=== PATIENT | male | born 1960 | race Caucasian/White ===

== ENCOUNTER 2021-01-05 02:54 | Inpatient (IN) | payer OTHER ==
[~2021-01-05] VITALS: Ht 165.1 cm; Wt 94.8 kg
[2021-01-05] VITALS (21 sets, daily range): BP systolic 103–162; BP diastolic 44–98
[~2021-01-05 02:54] MED LIST: ARIP10TA9 PO; ATOR40TA PO; GABA-534 PO; METO25TA20 PO; MIRT-119 PO; NEBI10TA2 PO; OMEP40CA21 PO; OXYC-133 PO
--- NOTE | 2021-01-05 03:00 | NUR ---
PT BIBS FOR C/O CP. WAS SEEN AT [facility] ER TODAY W/ DX OF MD. LEFT AMA WHILE WAITING TO BE TRANSFERED OUT. PT ALERT AND ORIENTED X3. AMBULATORY WITH NON LABORED BREATHING.
--- NOTE | 2021-01-05 03:11 | NUR ---
xray at bedside
[2021-01-05 03:18] LABS: CALCIUM, SERUM 8.7 mg/dL (8.5-10.1); CREATININE 0.8 mg/dL (0.6-1.3); POTASSIUM 3.5 mmol/L (3.5-5.1)
[2021-01-05 03:23] LABS: BASOPHILS % (AUTO) 0.2 % (0.0-2.0); EOSINOPHILS % (AUTO) 1.1 % (0.0-6.0); HEMATOCRIT 39 % (39-51); HEMOGLOBIN 12.8 g/dL (13.5-17.5); LYMPHOCYTES # (AUTO) 3.4 K/uL (0.8-4.8); LYMPHOCYTES % (AUTO) 33.3 % (20.0-44.0); MEAN CORPUSCULAR HGB CONC 33 g/dl (31.0-36.0); MEAN CORPUSCULAR VOLUME 90 fL (80-96); MONOCYTES # (AUTO) 0.5 K/uL (0.1-1.30); MONOCYTES % (AUTO) 5.1 % (2.0-12.0); NEUTROPHILS # (AUTO) 6.2 K/uL (1.8-8.9); NEUTROPHILS % (AUTO) 60.3 % (43.0-81.0); PLATELET COUNT (AUTO) 250 K/uL (150-450); RED BLOOD CELL COUNT(AUTO) 4.29 MIL/uL (4.5-6.0); WHITE BLOOD COUNT (AUTO) 10.2 K/uL (4.3-11.0)
--- NOTE | 2021-01-05 03:27 | NUR ---
TROPONIN 0.98
[2021-01-05] MEDS ORDERED: NITROGLYCERIN PACKET 1 GM PACKET ONE (03:40)
[2021-01-05] MEDS ORDERED: NITROGLYCERIN PACKET 1 GM PACKET TOP ONE (04:00)
--- NOTE | 2021-01-05 04:00 | NUR ---
VERBAL AUTH REC'D FROM SANDRO MOORE THE PT
--- NOTE | 2021-01-05 04:02 | NUR ---
ICU 263
--- NOTE | 2021-01-05 04:14 | NUR ---
REPORT GIVEN TO PIPE MANUFACTURE SUPERVISOR
--- NOTE | 2021-01-05 04:26 | NUR ---
pt transferred to room 263 on dining room coordinator per acls protocol without incident
[2021-01-05] MEDS ORDERED: MAG HYDROX/AL HYDROX/SIMETH 30 ML UDC PO PRN (04:30)
[2021-01-05] MEDS ORDERED: ACETAMINOPHEN 325 MG TABLET PO PRN (04:30)
[2021-01-05] MEDS ORDERED: Z GUARD REMEDY 2 OZ OINT TP PRN (04:30)
[2021-01-05] MEDS ORDERED: MORPHINE SULFATE INJ 2 MG/ML DISP.SYRIN IV PRN (04:30)
[2021-01-05] MEDS ORDERED: ONDANSETRON HCL/PF 4 MG/2 ML VIAL IVP PRN (04:30)
[2021-01-05] MEDS ORDERED: MAGNESIUM HYDROXIDE 30 ML UDC PO PRN (04:30)
[2021-01-05] MEDS ORDERED: ZOLPIDEM TARTRATE 5 MG TABLET PO PRN (04:30)
--- NOTE | 2021-01-05 07:00 | NUR ---
RN NOTES 0420 AM - ADMITTED PATIENT FROM ER INITIALLY FROM [facility] WITH NSTEMI DUE TO CHEST PAIN AND ELEVATED TROPONIN. PATIENT IS ALERT ORIENTED X 4. VERBALLY RESPONSIVE. DENIES CHEST PAIN AT THIS TIME. SR ON MONITOR. VSS. SATURATION 96%. PATIENT AMBULATE AND TRANSFER WELL FROM STRETCHER TO BED. AWAITING FOR CARDIAC CATH TODAY. ENDORSED CONTINUITY OF CARE TO AM NURSE.
--- NOTE | 2021-01-05 07:27 | NUR ---
CHECK AIRMAN NOTE Patient is A/O X4, awake using his phone on bed, no respiratory distress, no SOB. Complains of pain on chest when he moves around 4/10, states it has improved compared to last night. Sinus rhythm, able to void 280cc on urinal. Safety precautions implemented, bed locked in lowest position, call light within reach.
[2021-01-05] MEDS ORDERED: ENOXAPARIN SODIUM 100 MG/ML DISP.SYRIN SQ SCH (08:00)
[2021-01-05] MEDS: ARIPIPRAZOLE 5 MG TABLET PO SCH (08:05)
[2021-01-05] MEDS: METOPROLOL TARTRATE 25 MG TABLET PO SCH ×2 (08:06→21:39)
[2021-01-05] MEDS: PANTOPRAZOLE 40 MG TABLET.DR PO SCH (08:06)
[2021-01-05] MEDS: NITROGLYCERIN 30 GM TUBE TP SCH ×2 (08:34→21:39)
[2021-01-05 08:56] LABS: THYROID STIMULATING HORMONE 1.815 uIU/mL (0.358-3.74)
--- NOTE | 2021-01-05 10:05 | NUR ---
RN NOTE Troponin 1.541, Dr. Salamanca made aware.
[2021-01-05] MEDS ORDERED: IODIXANOL 150 ML IV ONE (11:59)
[2021-01-05] MEDS ORDERED: LIDOCAINE HCL/PF 1% 30 ML SDV ONE (12:00)
--- NOTE | 2021-01-05 12:15 | NUR ---
RN NOTE Out of LT HRT ART VENTRICLE ANGIO.
[2021-01-05] MEDS ORDERED: NTG 25 MG/D5W 250 ML BTL 25 MG/250 ML BTL IV ONE (12:25)
[2021-01-05] MEDS ORDERED: ATROPINE SULFATE 1 MG/10 ML DISP.SYRIN ONE (12:46)
[2021-01-05] MEDS ORDERED: HEPARIN SODIUM, PORCINE 5000 UNITS/1 ML VIAL ONE (13:02)
[2021-01-05] MEDS ORDERED: HEPARIN SODIUM, PORCINE 1,000 UNIT/ML VIAL ONE (13:02)
--- NOTE | 2021-01-05 13:40 | NUR ---
RN NOTE Back from [facility], per [facility] team patient has multivessel disease and Stent was not possible. Alert and oriented x 4. awake, no SOB, no respiratory distress. Back with transradial artery access on right side, site with no active bleeding, denies pain, informed to keep arm straight x 2 hours.
[2021-01-05] MEDS ORDERED: IV NS 0.9% 100 ML IV SCH (14:00)
[2021-01-05] MEDS ORDERED: IV NS 0.9% 1,000 ML IV ONE (14:40)
--- NOTE | 2021-01-05 15:23 | NUR ---
RN NOTE Transradial artery access removed per protocol 2 hours post procedure 3-5cc x 15 mins, after removal no active bleeding noted, no change in V/S, good capillary refill, pulse present on distal area.
--- NOTE | 2021-01-05 18:49 | NUR ---
LICENSED FUNERAL DIRECTOR CLOSING NOTE Patient is Alert and oriented x4, on 2 liters via NC satting 98%, denies chest pain at this moment since Nitro paste was applied. On IVF NS 100cc x 6 hours end 2049 with no s/sx of infiltration. Continent of B/B, uses the urinal with 500cc output. S/P Transradial access removal with no s/sx of bleeding, V/S WNL. Safety precautions implemented, bed locked in lowest position, call light within reach.
--- NOTE | 2021-01-05 19:30 | NUR ---
RN NOTES RECEIVED PATIENT RESTING ON BED. AWAKE ALERT ORIENTED X 4. ABLE TO VERBALIZED NEEDS AND CONCERNED. SR ON MONITOR. DENIES PAIN NOR CHEST PAIN. IV SITE ON RIGHT AC G 18 AND LAC G 18 RUNNING WITH NS @ 100 ML/HR TOLERATED WELL WILL STOP AT 2050 PM PER MD ORDER. S/P CARDIAC CATH ACCESS ON RIGHT RADIAL. KEPT PT CLEAN AND DRY. CALL LIGHT KEPT WITHIN EASY REACH. WILL CONTINUE TO MONITOR.
[2021-01-05] MEDS: MIRTAZAPINE 15 MG TABLET PO SCH (21:39)
[2021-01-05] MEDS: ATORVASTATIN 40 MG TABLET PO SCH (21:39)
[2021-01-05] MEDS: GABAPENTIN 300 MG CAPSULE PO SCH (21:39)
[2021-01-06] VITALS (20 sets, daily range): BP systolic 87–158; BP diastolic 41–91
[2021-01-06 04:39] LABS: BASOPHILS % (AUTO) 0.2 % (0.0-2.0); EOSINOPHILS % (AUTO) 1.3 % (0.0-6.0); HEMATOCRIT 35 % (39-51); HEMOGLOBIN 11.7 g/dL (13.5-17.5); LYMPHOCYTES # (AUTO) 2.4 K/uL (0.8-4.8); MEAN CORPUSCULAR HGB CONC 34 g/dl (31.0-36.0); MEAN CORPUSCULAR VOLUME 89 fL (80-96); MONOCYTES # (AUTO) 0.5 K/uL (0.1-1.30); NEUTROPHILS % (AUTO) 62.5 % (43.0-81.0); PLATELET COUNT (AUTO) 211 K/uL (150-450); RED BLOOD CELL COUNT(AUTO) 3.89 MIL/uL (4.5-6.0)
[2021-01-06 04:49] LABS: CALCIUM, SERUM 8.5 mg/dL (8.5-10.1); CREATININE 0.8 mg/dL (0.6-1.3); MAGNESIUM 2.2 mg/dL (1.8-2.4); PHOSPHORUS 3.8 mg/dL (2.5-4.9); POTASSIUM 3.9 mmol/L (3.5-5.1)
--- NOTE | 2021-01-06 06:37 | NUR ---
RN NOTES PATIENT ASLEEP WELL ON BED. NO SOB OR APPARENT DISTRESS, KEPT O2 2LPM VIA NC SATURATION >90% SB OR NSR ON MONITOR. DENIES CHEST PAIN. AFEBRILE VSS. NO CHANGE OF MENTAL STATUS. NO BLEEDING FROM S/P CARDIAC CATH. BED BATH DONE. KEPT PT CLEAN AND COMFORTABLE IN BED. CALL LIGHT KEPT WITHIN EASY REACH. WILL CONTINUE POC
--- NOTE | 2021-01-06 07:39 | NUR ---
NEEDLE PUNCH OPERATOR OPENING NOTE Patient is awake, A/O X 4, on 2 liters via NC, no respiratory distress, no SOB. Denies chest pain, or distress. Safety precautions implemented, bed locked in lowest position, call light within reach.
[2021-01-06] MEDS: METOPROLOL TARTRATE 25 MG TABLET PO SCH ×2 (08:48→20:37)
[2021-01-06] MEDS: ARIPIPRAZOLE 5 MG TABLET PO SCH (08:48)
[2021-01-06] MEDS: PANTOPRAZOLE 40 MG TABLET.DR PO SCH (08:49)
[2021-01-06] MEDS: NITROGLYCERIN 30 GM TUBE TP SCH ×2 (08:50→20:43)
[2021-01-06] MEDS: HYDROCODONE/APAP 5/325MG TABLET PO PRN (10:02)
--- NOTE | 2021-01-06 18:49 | NUR ---
BUSINESS PROPOSAL REP CLOSING NOTE Patient is A/O X 4, on 2 liters via NC, denies SOB and chest pain, RAC/LAC IV site with no s/sx of infiltration. Telereading sinus rhythm. Continent of B/B 700c urine voided, 2 BM. Ate 100% of all meals. Complains of pain on back area relieved after administration of [place]. Safety precautions implemented, bed locked in lowest position, call light within reach. 1845-Endorsed to NINA Nicole on ISAAC for continuation of care.
--- NOTE | 2021-01-06 19:30 | NUR ---
RN NOTE RECEIVED PATIENT IN BED RESTING ALERT ORIENTED X4 VERBALLY RESPONSIVE ON 2L OXYGEN VIA NASAL CANNULA, O2:97% IV SITE IS ON LEFT AC AND RIGHT AC INTACT PATENT CONTINET TO BOWEL/BLADDER SAFETY MEASURE IMPLEMENT BED IN LOW POSITION AND LOCKED CALL LIGHT WITHIN REACH CONTINUE TO MONITOR.
[2021-01-06] MEDS: MIRTAZAPINE 15 MG TABLET PO SCH (21:41)
[2021-01-06] MEDS: GABAPENTIN 300 MG CAPSULE PO SCH (21:41)
[2021-01-06] MEDS: ATORVASTATIN 40 MG TABLET PO SCH (21:41)
--- NOTE | 2021-01-06 23:00 | NUR ---
RN NOTE PATIENT STATED HAS DIFFICULTY BREATHING INCREASE OXYGEN FROM 2L TO 5L VIA NASAL CANNULA O2:96% NOTIFIED DORMITORY KEEPER SSN/SSBN ASSISTANT NAVIGATOR MISTI AND RECEIVED ORDER FOR EVAL FOR CPAP AND OUTPATIENT SLEEP STUDY WILL ENDORSE MORNING SHIFT CONTINUE TO MONITOR.
[2021-01-07] VITALS: BP 131/82
[2021-01-07] MEDS: HYDROCODONE/APAP 5/325MG TABLET PO PRN ×2 (01:26→22:16)
[2021-01-07 04:00] VITALS: BP 138/79
--- NOTE | 2021-01-07 06:53 | NUR ---
RN NOTE PATIENT REMAINS ON ALERT ORIENTED X4 VERBALLY RESPONSIVE ON 5L OXYGEN VIA NASAL CANNULA IV SITES ARE LEFT AC AND RIGHT AC ALL DUE MEDS GIVEN MD ORDERED KEPT CLEAN AND DRY ALL THE TIME,KEPT COMFORTABLE,KEPT CALL LIGHT WITHIN REACH, ALL NEEDS MET ENDORSE NEXT COMING SHIFT FOR CONTINUATION OF CARE.
--- NOTE | 2021-01-07 07:30 | NUR ---
INDUSTRIAL PLANT CUSTODIAN AM NOTE PATIENT IN BED,ALERT ORIENTED X4, VERBALLY RESPONSIVE ON 5L OXYGEN VIA NASAL CANNULA, NO SOB, RESPIRATION UNLABORED. SR WITH HR 70s ON MONITOR, DENIES ANY CHEST PAIN/DISCOMFORT. IV SITE IS ON LEFT AC 18G AND RIGHT AC 18G, BOTH FLUSHES WELL, BOTH SITE CLEAR. CARDIAC DIET, AMBULATORY WITH ASSIST, BRP. INTACT SKIN. INDEPENDENT OF BED MOBILITY. SAFETY MEASURE IN PLACE. BED IN LOW POSITION AND LOCKED POC DISCUSSED VERBALIZED UNDERSTANDING. CALL LIGHT WITHIN REACH CONTINUE TO MONITOR.
[2021-01-07 08:00] VITALS: BP 115/79
[2021-01-07] MEDS: PANTOPRAZOLE 40 MG TABLET.DR PO SCH (08:19)
[2021-01-07] MEDS: ARIPIPRAZOLE 5 MG TABLET PO SCH (08:19)
[2021-01-07] MEDS: METOPROLOL TARTRATE 25 MG TABLET PO SCH ×2 (08:20→20:46)
[2021-01-07] MEDS: NITROGLYCERIN 30 GM TUBE TP SCH ×2 (08:33→20:46)
--- NOTE | 2021-01-07 09:30 | NUR ---
RN NOTES DUE MEDS GIVEN
[2021-01-07] MEDS: ASPIRIN 81 MG TAB.CHEW PO SCH (11:02)
[2021-01-07 12:00] VITALS: BP 114/67
[2021-01-07 16:00] VITALS: BP 122/70
[2021-01-07] MEDS ORDERED: ASPI-1169 PO (17:10)
--- NOTE | 2021-01-07 19:12 | NUR ---
CONCRETE BLOCK MASON CLOSING NOTE PATIENT RESTING, IN BED,ALERT ORIENTED X4, VERBALLY RESPONSIVE ON 5L OXYGEN VIA NASAL CANNULA, ON AND OFF, NO SOB, RESPIRATION UNLABORED. SR WITH HR 70s ON MONITOR, DENIES ANY CHEST PAIN/DISCOMFORT. IV SITE IS ON LEFT AC 18G AND RIGHT AC 18G, BOTH FLUSHES WELL, BOTH SITE CLEAR. CARDIAC DIET, AMBULATORY WITH ASSIST, BRP. INTACT SKIN. INDEPENDENT OF BED MOBILITY. SAFETY MEASURE IN PLACE. BED IN LOW POSITION AND LOCKED POC DISCUSSED VERBALIZED UNDERSTANDING. ALL NEEDS ATTENDED. NO OTHER SIGNFICANT CHANGE IN CONDITION. CALL LIGHT WITHIN ENDORSE TO NEXT SHIFT FOR [place]. PATIENT AWAITING BED AVAILABILITY AT [facility] FOR POSSIBLE BYPASS. DISCHARGE PAPERS DONE. [facility] TO CALL FOR THE BED. THEN NEEDS TO CALL MA GLYNN TO ACTIVATE WILL CALL [facility] TRANSPORT, TRIP # [id number]. PAPER AND INSTRUCTION GIVEN TO FARHAT WOOD.
--- NOTE | 2021-01-07 19:30 | NUR ---
RN NOTE RECEIVED PATIENT IN BED, AO X 4, IN NO S/SX OF ACUTE DISTRESS AT THIS TIME, RESPIRATIONS EVEN AND UNLABORED, SATURATION AT 98% ON 5L VIA NC, SR ON THE MONITOR, HR IS 68. NOTED IV SITE RAC 18G, AND LAC 18G, ALL HUBS PATENT AND FLUSHING WELL, NO S/S OF INFECTION OR INFILTRATION.SAFETY MEASURES IMPLEMENTED. PATIENT BED ALARM IS ON. HEAD OF BED ELEVATED. BED IS LOCKED, IN LOWEST POSITION AND SIDE RAILS UP. CALL LIGHT WITHIN REACH OF THE PATIENT. WILL CONTINUE TO MONITOR AND REASSESS FOR ANY CHANGES.
[2021-01-07 20:00] VITALS: BP 134/73
[2021-01-07] MEDS: ATORVASTATIN 40 MG TABLET PO SCH (21:23)
[2021-01-07] MEDS: GABAPENTIN 300 MG CAPSULE PO SCH (21:23)
[2021-01-07] MEDS: MIRTAZAPINE 15 MG TABLET PO SCH (21:23)
[2021-01-08] VITALS: BP 152/75
[2021-01-08 04:00] VITALS: BP 121/71
--- NOTE | 2021-01-08 07:41 | NUR ---
RN OPENING NOTES; RECIEVED PT IN BED, LAUGHING, WATCHING TV. PT A/OX4, PT AMBULATORY. NO C/O SOB, OR PAIN. NO DISTRESS NOTED AT THIS TIME. PT TO BE TRANSFERED TO [facility]. ALL PAPERWORK DONE. WAITING FOR BED. SAFETY MEASURES RENDERED, BED IN LOWEST POS. LOCKED WITH CALL WITHIN REACH. WILL CONTINUE TO MONITOR.
[2021-01-08 08:00] VITALS: BP 115/79
[2021-01-08] MEDS: PANTOPRAZOLE 40 MG TABLET.DR PO SCH (08:03)
[2021-01-08] MEDS: ASPIRIN 81 MG TAB.CHEW PO SCH (08:03)
[2021-01-08] MEDS: ARIPIPRAZOLE 5 MG TABLET PO SCH (08:03)
[2021-01-08] MEDS: NITROGLYCERIN 30 GM TUBE TP SCH ×2 (08:04→21:58)
[2021-01-08] MEDS: METOPROLOL TARTRATE 25 MG TABLET PO SCH ×2 (08:04→21:51)
[2021-01-08 12:00] VITALS: BP 105/60
[2021-01-08 16:00] VITALS: BP 107/65
--- NOTE | 2021-01-08 16:31 | NUR ---
"SS Consult: SS Consult requested for Homelessness. The pt. is a 60-year old male who is in ISAAC w/ c/o chest pain per pt. The pt. appears well-groomed, is A&O X4 and good eye contact. The pt. mood is euthymic. Pt.s speech is WNL. Pt. denies SI/HI and denies hallucinations. JANES explored pt.s living situation. Pt. states she has been technically homeless for some time and lives in his van. Per pt., his vehicle is parked nearby and his. friends are looking after it. JANES explored pt.s mental health Hx. Pt. states he has been diagnosed with Schizophrenia in the past and is taking Abilify, and Zyprexa. SW explored pt.s drug & ETOH use. Patient denies any drug or alcohol use. Pt. states he is ambulatory. JANES explored pt.s support system. Pt. states his support system includes: his sister, Ghazala Mckeon [phone] and adopted son, Tahir Nolan [phone]. Pt. states he receives disability insurance. D/C PLAN: Per CM notes, pt. require bypass surgery and may possibly go to [facility] for procedure. Pt. is aware and agreeable to this plan. Pt. signed homeless waiver and it was placed in the pt.s chart. JANES provided the following homeless resources and pt. accepted them. Year-round shelters: [facility] [address] [place], [place] [phone] ; [facility] [address] [place] [address]; [facility] [address] [facility] [address] Winter Shelters: Filemon Mejia [place] Provider: [facility] Address: [address] [facility] [place], [address] # of Beds: 47 Population Served: [facility] 6 | [facility] Kierra Noble [place] Provider: [facility] Address: [address], [address] # of Beds: 66 Population Served: [facility] [employer] [place] Provider: First to Serve Address: [address] [facility], [address] # of Beds: 56 Population Served: [facility] David Castano Provider: /[facility] Address: [address] [facility], [address] # of Beds: 49 Population Served: [facility] SPA 8 | [facility] Provider: First to Serve Address: [address] [facility]. [place], [address] # of Beds: 37 Population Served: [facility] Hygiene: [facility]: [address] [place] ; [facility] [address] [facility] ; [facility] [address] [place] . Food Resources: [place] [facility] at [facility]- [address] [facility]; Meet Each Need with Dignity ([facility]) [address] [facility]; [facility] Food Pantry [address] [facility]; [facility] [address] [facility]. Mental Health resources provided: [facility] [address] [place], [place] [phone] ; [facility] [place] [address] [facility] [address], [place], [place] [phone] ; Dwight Shanna [facility] [address] [place] [address] ; [facility] [address] [place], [place] [address] Healthcare Clinics: [facility] [address] [facility], [address] [place]. [place] ; [facility] [address] [facility] [address] [place] [address]; [facility] [address] [place] [address] [phone]) [phone] Counseling--[facility] [address], [address] [place], [place] [address] (Specializes in in-depth psychotherapy for emotional distress: anxiety, depression, interpersonal conflicts, life transitions, childhood abuse) [facility] [address] [place], [place] [phone] (Assist with solving problem marital difficulties, separation & divorce, aging parents, & grief, chronic & terminal illness) [facility] [address] [place] [address] (Deal with loss & grief, anxiety, marital difficulties) Homebound/Mental Health Services [address] [facility] [address] [place] [address] (Provide in-home mental services to people who are incapable of leaving their homes) [facility] for [facility]eds of the Elderly Senior Service/Resource Center [address] [place] [address] [facility] [address] [place] [address] PSYCHIATRIC OUTPATIENT SERVICES [facility] Partial Hospitalization and Intensive Outpatient Program (Managed Care and [place] Only)[address] [facility] [place] [phone] [facility] Partial Hospitalization and Outpatient [id number] [facility] [address] [place], [place] [phone] [facility] [id number] [place], [place] [phone] [facility] Partial Hospitalization and Outpatient [id number] [place], [phone] Substance Abuse resources provided included: [facility] Substance Abuse Self-Helpline (SAS) ; CRI [facility]HELP [address] [facility]. [place] [address] ; [facility] [address] [facility] [address] ; [facility] Rehabilitation Program [address] [place] [address] ; [facility] [address] [facility] [address] ; [facility] Treatment [facility] [address] [facility] [address] ; [facility] [address] [facility] [phone] ; [facility] Substance Abuse Helpline(SAS)[facility] ; [facility] ; [facility]; [facility] [place]; [facility] [place]; [facility] Nghia Xavier; [facility] [place]; [facility] [place]; [facility] [place]; [facility], [facility]. [place]; Alcoholics Anonymous -SFV; Uu-Mjve-Okeqpbt ; Marijuana Anonymous -SFV; Narcotics Anonymous www.na.org;"
--- NOTE | 2021-01-08 18:09 | NUR ---
RN CLOSING NOTES; PT IN ROOM WATCHING TV. PT A/OX3, AMBULATORY. NO SOB NOTED, NO DISTRESS NOTED. PT HAS NO C/O PAIN AT THIS TIME. ALL MEDICATIONS GIVEN AND TOLERATED WELL. NO SIGNIFICANT CHANGES IN PT HEALTH DURING SHIFT. SAFETY MEASURES RENDERED, PT KEPT CLEAN, DRY, AND COMFORTABLE. BED LOCKED, IN LOWEST POS. SIDE RAILS UP WITH CALL LIGHT WITHIN REACH. PT WAITING FOR JUNIOR BRAND MANAGER AT 8PM TO BE TRANSFERRED TO [facility]. REPORT GIVEN TO WILL. ENDORSED TO HUMAN RESOURCES SUPERVISOR RN IN STABLE CONDITION. ALL PAPER WORK READY TO GO AND LOCATED IN PT CHART.
--- NOTE | 2021-01-08 19:37 | NUR ---
RN OPENING NOTES: RECEIVED PATIENT AWAKE IN BED, BED IN LOW POSITION, CALL LIGHTS WITHIN REACH, NO COMPLAIN OF PAIN AND DISCOMFORT AT THIS TIME, PATIENT IS AMBULATORY A/OX4 ABLE TO MAKE NEEDS KNOWN, ON NC AT 5LPM, NO SOB NOTES, WITH KRISTOFER WHITESIDE#18, PATIENTS AWAITING TO BE DISCHARGE TO [facility], ALL NEEDS MET, CONTINUE TO MONITOR.
[2021-01-08] MEDS: GABAPENTIN 300 MG CAPSULE PO SCH (21:33)
[2021-01-08] MEDS: ATORVASTATIN 40 MG TABLET PO SCH (21:34)
[2021-01-08] MEDS: MIRTAZAPINE 15 MG TABLET PO SCH (21:34)
[2021-01-08 21:58] VITALS: BP 147/86
--- NOTE | 2021-01-08 22:00 | NUR ---
RN CLOSING NOTES: PATIENT WAS MANAGER STORY VIA GURNEY BY [facility] AT 2150 ON STABLE CONDITION TO [facility], V/S ARE WITHIN NORMAL RANGE, ALL DUE MEDS GIVEN, PATIENT HAS NO COMPLAIN OF PAIN AND DISCOMFORT DURING DISCHARGE. PATIENT KEPT CLEAN AND DRY, ENDORSE DOCUMENT TO AMBULANCE , ABLE TO SPEAK TO ONE OF THE NURSE IN HOSPITAL FOR REENDORSEMENT, ALL NEEDS MET LEFT THE FACILITY 2150 TO [facility]
== END 2021-01-08 21:50 | disposition short-term general hospital (02) | DRG 190 ==
LOC: ER 02:57 → ICU 04:01 → TELE1 01-06 18:46
PROVIDERS: ADMIT Nurse Practitioner Acute Care; ATTEND Nurse Practitioner Acute Care
PROC: 4A023N7 Measurement of Cardiac Sampling and Pressure, Left Heart, Percutaneous Approach (ICD-10-PCS; principal; 2021-01-05)
PROC: B211YZZ Fluoroscopy of Multiple Coronary Arteries using Other Contrast (ICD-10-PCS; 2021-01-05)
DX: I21.4 Non-ST elevation (NSTEMI) myocardial infarction (principal); E66.9 Obesity, unspecified; I10 Essential (primary) hypertension; Z20.822 Contact with and (suspected) exposure to COVID-19; E78.5 Hyperlipidemia, unspecified; Z59.00 Homelessness unspecified; Z68.34 Body mass index [BMI] 34.0-34.9, adult; I25.110 Atherosclerotic heart disease of native coronary artery with unstable angina pectoris; F32.A Depression, unspecified; F20.9 Schizophrenia, unspecified; Z95.5 Presence of coronary angioplasty implant and graft; G89.29 Other chronic pain; F17.200 Nicotine dependence, unspecified, uncomplicated; I25.2 Old myocardial infarction; Z79.899 Other long term (current) drug therapy
CPT/HCPCS: 36415; 71045-TC; 80048-TC; 80061-TC; 83735-TC; 84100-TC; 84439-TC; 84443-TC; 84484-TC; 85025-TC; 85610-TC; 87081-TC; 93307-TC; C1887; C9803; G0378; G0500; J0461; J1644; J1650; J3490; J7030; Q9967

== ENCOUNTER 2021-10-27 09:16 | Inpatient (IN) | payer OTHER ==
[~2021-10-27] VITALS: Ht 165.1 cm; Wt 95.3 kg
[~2021-10-27 09:16] MED LIST changes: +ASPI-1169 PO
--- NOTE | 2021-10-27 09:30 | NUR ---
BIBS W/ C/O SOB X4 DAYS; PER PT, HE RAN OUT OF INHALER AND IS REQUESTNG BREATHING TREATMENT. PT IS A/O X4, AMBULATORY, TO ER BED 7, AWAITING MD DUNNE.
[2021-10-27] MEDS ORDERED: FUROSEMIDE 40 MG/4 ML VIAL IV ONE (10:00)
[2021-10-27] MEDS ORDERED: ALBUTEROL FS 2.5 MG/0.5 ML VIAL.NEB NEB ONE (10:00)
[2021-10-27] MEDS ORDERED: IPRATROPIUM NEB FS 0.5 MG/2.5 ML AMPUL.NEB NEB ONE (10:00)
--- NOTE | 2021-10-27 10:00 | NUR ---
COVID ANTIGEN SWAB DONE AND SENT TO THE LAB
--- NOTE | 2021-10-27 10:20 | NUR ---
PHLEB TECH AT BEDSIDE FOR BLOOD DRAW
[2021-10-27] MEDS ORDERED: FUROSEMIDE 40 MG/4 ML VIAL ONE (10:27)
[2021-10-27 10:29] LABS: BASOPHILS % (AUTO) 0.4 % (0.0-2.0); EOSINOPHILS % (AUTO) 1.4 % (0.0-6.0); HEMATOCRIT 40 % (39-51); HEMOGLOBIN 13.2 g/dL (13.5-17.5); LYMPHOCYTES # (AUTO) 2.1 K/uL (0.8-4.8); LYMPHOCYTES % (AUTO) 23.8 % (20.0-44.0); MEAN CORPUSCULAR HGB CONC 33 g/dl (31.0-36.0); MEAN CORPUSCULAR VOLUME 86 fL (80-96); MONOCYTES # (AUTO) 0.5 K/uL (0.1-1.30); MONOCYTES % (AUTO) 5.5 % (2.0-12.0); NEUTROPHILS % (AUTO) 68.9 % (43.0-81.0); PLATELET COUNT (AUTO) 228 K/uL (150-450); RED BLOOD CELL COUNT(AUTO) 4.63 MIL/uL (4.5-6.0); WHITE BLOOD COUNT (AUTO) 8.7 K/uL (4.3-11.0)
--- NOTE | 2021-10-27 10:30 | NUR ---
RT AT BEDSIDE FOR BREATHING TX
[2021-10-27] MEDS ORDERED: IPRATROPIUM NEB FS 0.5 MG/2.5 ML AMPUL.NEB ONE (10:32)
[2021-10-27] MEDS ORDERED: ALBUTEROL FS 2.5 MG/3 ML VIAL.NEB ONE (10:32)
--- NOTE | 2021-10-27 10:53 | NUR ---
IV LINE ESTABLISHED ON L HAND #20; LINE IS SALINE-LOCKED
[2021-10-27] MEDS ORDERED: HYDROCODONE/APAP 5/325MG TABLET ONE (10:57)
--- NOTE | 2021-10-27 10:57 | NUR ---
PT REQUESTED NORCO FOR CHEST PAIN RATE 7-11/03; DR. NARAYAN MADE AWARE W/ ORDER FOR NORCO , ORDER WAS READ BACK AND VERIFIED.
[2021-10-27] MEDS ORDERED: HYDROCODONE/APAP 5/325MG TABLET PO ONE (11:00)
[2021-10-27] MEDS ORDERED: ALBU8.5H8 INH (11:23)
[2021-10-27] MEDS ORDERED: ASPI-1420 PO (11:23)
[2021-10-27] MEDS ORDERED: INSU100I14 SQ (11:23)
[2021-10-27] MEDS ORDERED: AMIO200T5 PO (11:23)
[2021-10-27] MEDS ORDERED: ATOR40TA PO (11:23)
[2021-10-27] MEDS ORDERED: METO25TA4 PO (11:23)
[2021-10-27] MEDS ORDERED: CYCL10TA9 PO (11:23)
[2021-10-27] MEDS ORDERED: FERR325T23 PO (11:23)
--- NOTE | 2021-10-27 12:08 | NUR ---
Adriel myers in [facility] - 10/27/21 at 1209 by [place]IA [place] [phone]-
--- NOTE | 2021-10-27 12:09 | NUR ---
ROOM [id number]
[2021-10-27 12:30] LABS: ALANINE AMINOTRANSFERASE 47 U/L (12-78); ALKALINE PHOSPHATASE 88 U/L (46-116); ASPARTATE AMINOTRANSFERASE 38 U/L (15-37); BILIRUBIN,DIRECT 0.2 mg/dL (0.0-0.2); BILIRUBIN,TOTAL 0.5 mg/dL (0.2-1.0); CALCIUM, SERUM 8.6 mg/dL (8.5-10.1); CARBON DIOXIDE 26 mmol/L (21-32); CHLORIDE 101 mmol/L (98-107); CREATININE 0.9 mg/dL (0.6-1.3); GLUCOSE 93 mg/dL (74-106); POTASSIUM 3.1 mmol/L (3.5-5.1); SODIUM SERUM 137 mmol/L (136-145); TOTAL PROTEIN, SERUM 8.3 g/dL (6.4-8.2); UREA NITROGEN, BLOOD 11 mg/dL (7-18)
[2021-10-27 12:40] LABS: ALBUMIN 3.7 g/dL (3.4-5.0)
--- NOTE | 2021-10-27 13:07 | NUR ---
PT REPORT GIVEN TO NINA NOVOA
[2021-10-27] MEDS ORDERED: ASPIRIN 325 MG TABLET ONE (13:18)
[2021-10-27] MEDS ORDERED: ASPIRIN 325 MG TABLET PO ONE (13:30)
--- NOTE | 2021-10-27 16:05 | NUR ---
PT TRANSFERRED TO UNIT VIA JEROME COBURN PROTOCOL. WARM HANDOFF GIVEN TO NINA NOVOA.
--- NOTE | 2021-10-27 16:10 | NUR ---
SHAKER SCREEN OPERATORPODIATRIST ORTHOPEDIC NOTE: RECEIVED PT. FROM ER VIA [facility]. REPORT RECEIVED FROM SHANNON WOOD. PT. AOX4. ABLE TO MAKE NEEDS KNOWN. ON RA, TOLERATING WELL. SAT AT 95%. NO SOB NOTED AT THIS TIME. ON TELE MONITOR WITH CURRENT READING OF NSR, CURRENT HR OF 79 BPM. BP - 159/72. RESP - 20 BPM. ORAL TEMP - 97.4 F. NO C/O OF PAIN AT THIS TIME. IV SITE IN L HAND G #20 SALINE LOCKED. INTACT AND PATENT. NO S/S OF INFILTRATION. SAFETY MEASURES IN PLACE: BED IN LOWEST AND LOCKED POSITION, SIDE RAILS UP X2, CALL LIGHT WITHIN REACH. WILL CONTINUE TO MONITOR PT. FOR ANY CHANGES.
[2021-10-27] MEDS ORDERED: ACETAMINOPHEN 325 MG TABLET PO PRN (17:00)
[2021-10-27] MEDS ORDERED: IPRATROPIUM NEB FS 0.5 MG/2.5 ML AMPUL.NEB NEB PRN (17:00)
[2021-10-27] MEDS ORDERED: POTASSIUM CHLORIDE 20 MEQ TAB.PRT.SR PO ONE (17:00)
[2021-10-27] MEDS ORDERED: GUAIFENESIN LA 600 MG TABLET.SA PO PRN (17:00)
[2021-10-27] MEDS ORDERED: ONDANSETRON HCL/PF 4 MG/2 ML VIAL IVP PRN (17:00)
[2021-10-27] MEDS ORDERED: ALBUTEROL FS 2.5 MG/3 ML VIAL.NEB NEB PRN (17:00)
[2021-10-27] MEDS ORDERED: MAG HYDROX/AL HYDROX/SIMETH 30 ML UDC PO PRN (17:00)
[2021-10-27] MEDS ORDERED: ENOXAPARIN SODIUM 40 MG/0.4 ML DISP.SYRIN SQ SCH (17:00)
[2021-10-27] MEDS: HYDROCODONE/APAP 5/325MG TABLET PO PRN (18:13)
--- NOTE | 2021-10-27 19:20 | NUR ---
COURT SECURITY OFFICER CLOSING NOTE: PT REMAINS IN BED AWAKE. A/O X4, ABLE TO MAKE NEEDS KNOWN. ON RA, TOLERATING WELL. NO SOB NOTED AT THIS TIME. NORCO GIVEN AT 1813 FOR CHEST PAIN AROUND SURGICAL INCISION FROM SURGERY IN THE PAST. PAIN IMPROVED AND NOW AT 05/06. IV SITE ON L HAND #20G SALINE LOCKED. INTACT AND PATENT. NO S/S OF INFILTRATION NOTED. SAFETY MEASURES MAINTAINED: BED IN LOWEST AND LOCKED POSITION, SIDE RAILS UP X2, CALL LIGHT WITHIN REACH. WILL ENDORSE CONTINUITY OF CARE TO EDUCATION PROFESSIONAL RN.
--- NOTE | 2021-10-27 19:30 | NUR ---
RN NOTES; RECEIVED PT IN BED AAOX4 ON RM AIR VICTOR MANUEL WELL.NO SIGN SOB/DISTRESS NOTED.NO CO,PLAINED OF PAIN/DISCOMFORT AT THIS TIME.IV ACCESS ON L HAND 20G PATENT AND INTACT.CALL LIGHT WITHIN REACH.BED LOCKED AND LOW POSITION.CONTINUE TO MONITOR.
[2021-10-27 20:00] VITALS: BP 126/67
[2021-10-28] VITALS: BP 168/72
[2021-10-28 05:00] VITALS: BP 130/83
[2021-10-28 06:09] LABS: BASOPHILS % (AUTO) 0.3 % (0.0-2.0); EOSINOPHILS % (AUTO) 2.2 % (0.0-6.0); HEMATOCRIT 39 % (39-51); LYMPHOCYTES # (AUTO) 2.1 K/uL (0.8-4.8); LYMPHOCYTES % (AUTO) 30.2 % (20.0-44.0); MEAN CORPUSCULAR HGB CONC 33 g/dl (31.0-36.0); MEAN CORPUSCULAR VOLUME 86 fL (80-96); MONOCYTES # (AUTO) 0.3 K/uL (0.1-1.30); MONOCYTES % (AUTO) 4.4 % (2.0-12.0); NEUTROPHILS # (AUTO) 4.4 K/uL (1.8-8.9); NEUTROPHILS % (AUTO) 62.9 % (43.0-81.0); PLATELET COUNT (AUTO) 231 K/uL (150-450); RED BLOOD CELL COUNT(AUTO) 4.51 MIL/uL (4.5-6.0)
[2021-10-28 06:26] LABS: CALCIUM, SERUM 8.8 mg/dL (8.5-10.1); CREATININE 0.8 mg/dL (0.6-1.3); MAGNESIUM 2.1 mg/dL (1.8-2.4); POTASSIUM 3.6 mmol/L (3.5-5.1)
--- NOTE | 2021-10-28 06:47 | NUR ---
PLANT WRAPPER CLOSING NOTE; PATIENT IN BED AAOX4.NO SIGN SOB/DISTRESS NOTED. NO COMPLAINED OF PAIN/DISCOMFORT DURING SHIFT.DUE MEDS GIVEN ORDERED.ALL NEEDS ATTENDED.IV ACCESS ON LHAND 20G PATENT AND INTACT.SAFETY MEASURED INPLACE.BED LOCKED AND LOW POSITION.WILL ENDORSE TO MORNING SHIFT.
[2021-10-28] MEDS ORDERED: PANTOPRAZOLE 40 MG TABLET.DR PO SCH (07:30)
--- NOTE | 2021-10-28 07:30 | NUR ---
LINE FISHER CLOSING NOTE: RECEIVED PT AWAKE IN BED, A/O X4, ABLE TO MAKE NEEDS KNOWN. ON RA, TOLERATING WELL. NO SOB OR ACUTE DISTRESS NOTED AT THIS TIME. IV ACCESS ON L HAND #20G SALINE LOCKED, INTACT AND PATENT. NO S/S OF INFILTRATION NOTED. SAFETY MEASURES MAINTAINED: BED IN LOWEST AND LOCKED POSITION, SIDE RAILS UP X2, CALL LIGHT WITHIN REACH, WILL CONT TO MONITOR. . Addendum: 10/28/21 at 1444 by LISSY PETERS RN CORRECTION: OPENING NOTES:
[2021-10-28 08:00] VITALS: BP 138/79
[2021-10-28] MEDS: HYDROCODONE/APAP 5/325MG TABLET PO PRN ×2 (08:58→14:14)
[2021-10-28] MEDS ORDERED: ASPIRIN EC 81 MG TABLET.DR PO SCH (09:00)
[2021-10-28] MEDS ORDERED: METOPROLOL SUCCINATE 25 MG TAB.SR.24H PO SCH (09:00)
[2021-10-28] MEDS ORDERED: AMIODARONE HCL 200 MG TABLET PO SCH (09:00)
[2021-10-28] MEDS ORDERED: ATORVASTATIN 40 MG TABLET PO SCH (09:00)
[2021-10-28] MEDS ORDERED: ASPI-1420 PO (11:10)
[2021-10-28] MEDS ORDERED: METO25TA4 PO (11:10)
[2021-10-28] MEDS ORDERED: ATOR40TA PO (11:10)
[2021-10-28] MEDS ORDERED: FERR325T23 PO (11:10)
[2021-10-28] MEDS ORDERED: ALBU8.5H8 INH (11:10)
[2021-10-28] MEDS ORDERED: CYCL10TA9 PO (11:10)
[2021-10-28] MEDS ORDERED: AMIO200T5 PO (11:10)
[2021-10-28] MEDS ORDERED: LORA10TA68 PO (11:10)
[2021-10-28] MEDS ORDERED: INSU100I14 SQ (11:10)
[2021-10-28 12:00] VITALS: BP 142/74
== END 2021-10-28 16:00 | disposition home or self-care (01) | DRG 194 ==
LOC: ER 09:20 → TELE 14:43
PROVIDERS: ADMIT Nurse Practitioner Family; ATTEND Nurse Practitioner Family
DX: I11.0 Hypertensive heart disease with heart failure (principal); Z95.1 Presence of aortocoronary bypass graft; E11.9 Type 2 diabetes mellitus without complications; Z20.822 Contact with and (suspected) exposure to COVID-19; Z95.5 Presence of coronary angioplasty implant and graft; Z87.828 Personal history of other (healed) physical injury and trauma; Z59.00 Homelessness unspecified; I25.10 Atherosclerotic heart disease of native coronary artery without angina pectoris; Z79.4 Long term (current) use of insulin; Z79.51 Long term (current) use of inhaled steroids; Z79.82 Long term (current) use of aspirin; Z79.899 Other long term (current) drug therapy; E78.5 Hyperlipidemia, unspecified; F32.A Depression, unspecified; J30.2 Other seasonal allergic rhinitis; E87.6 Hypokalemia; E66.9 Obesity, unspecified; G47.33 Obstructive sleep apnea (adult) (pediatric); I50.43 Acute on chronic combined systolic (congestive) and diastolic (congestive) heart failure; F17.200 Nicotine dependence, unspecified, uncomplicated; Z68.34 Body mass index [BMI] 34.0-34.9, adult
CPT/HCPCS: 36415; 71045-TC; 80048-TC; 80061-TC; 80076-TC; 83735-TC; 83880; 84484-TC; 85025-TC; 87081-TC; 93307-TC; 93970-TC; C9803; G0378; J1650; J1940

== ENCOUNTER 2022-07-03 11:58 | Emergency (ER) | payer OTHER ==
[~2022-07-03] VITALS: Ht 162.6 cm; Wt 95.3 kg
[~2022-07-03 11:58] MED LIST changes: +ALBU8.5H8 INH; +AMIO200T5 PO; -ARIP10TA9 PO; -ASPI-1169 PO; +ASPI-1420 PO; +CYCL10TA9 PO; +FERR325T23 PO; -GABA-534 PO; +INSU100I14 SQ; +LORA10TA68 PO; -METO25TA20 PO; +METO25TA4 PO; -MIRT-119 PO; -NEBI10TA2 PO; -OMEP40CA21 PO; -OXYC-133 PO
[2022-07-03] MEDS ORDERED: ASPI-1420 PO (12:25)
[2022-07-03] MEDS ORDERED: AMIO200T5 PO (12:25)
[2022-07-03] MEDS ORDERED: ALBU8.5H8 INH (12:25)
[2022-07-03] MEDS ORDERED: ATOR40TA PO (12:25)
--- NOTE | 2022-07-03 12:25 | NUR ---
Patient AOx4, able to express his concerns. Discussed plan of care, verbalized agreement. All safety precautions taken, will continue to monitor.
--- NOTE | 2022-07-03 12:32 | NUR ---
Blood work collected and sent to lab.
[2022-07-03 12:39] LABS: BASOPHILS # (AUTO) 0.1 K/uL (0.0-0.2); EOSINOPHILS % (AUTO) 1.3 % (0.0-6.0); HEMATOCRIT 40 % (39-51); HEMOGLOBIN 13.6 g/dL (13.5-17.5); LYMPHOCYTES # (AUTO) 2.7 K/uL (0.8-4.8); LYMPHOCYTES % (AUTO) 29.5 % (20.0-44.0); MEAN CORPUSCULAR HGB CONC 34 g/dl (31.0-36.0); MEAN CORPUSCULAR VOLUME 86 fL (80-96); MONOCYTES # (AUTO) 0.4 K/uL (0.1-1.30); MONOCYTES % (AUTO) 4.9 % (2.0-12.0); NEUTROPHILS # (AUTO) 5.7 K/uL (1.8-8.9); NEUTROPHILS % (AUTO) 63.3 % (43.0-81.0); PLATELET COUNT (AUTO) 252 K/uL (150-450); RED BLOOD CELL COUNT(AUTO) 4.65 MIL/uL (4.5-6.0)
[2022-07-03 12:49] LABS: CALCIUM, SERUM 8.9 mg/dL (8.5-10.1); CARBON DIOXIDE 23 mmol/L (21-32); CHLORIDE 102 mmol/L (98-107); CREATININE 0.8 mg/dL (0.6-1.3); GLUCOSE 89 mg/dL (74-106); POTASSIUM 3.6 mmol/L (3.5-5.1); SODIUM SERUM 136 mmol/L (136-145); UREA NITROGEN, BLOOD 9 mg/dL (7-18)
[2022-07-03 13:37] VITALS: BP 143/92
== END 2022-07-03 13:38 | disposition home or self-care (01) ==
LOC: ER 12:05
DX: R07.89 Other chest pain (principal); I10 Essential (primary) hypertension; Z95.1 Presence of aortocoronary bypass graft; Z79.899 Other long term (current) drug therapy; Z79.82 Long term (current) use of aspirin; Z59.00 Homelessness unspecified
CPT/HCPCS: 36415; 71045-TC; 80048-TC; 83880; 84484-TC; 85025-TC

== ENCOUNTER 2023-01-21 13:19 | Emergency (ER) | payer OTHER ==
[~2023-01-21] VITALS: Ht 165.1 cm; Wt 103.4 kg
[2023-01-21] MEDS ORDERED: MORPHINE SULFATE INJ 2 MG/ML DISP.SYRIN ONE ×2 (14:28→16:07)
[2023-01-21] MEDS ORDERED: MORPHINE SULFATE INJ 4 MG/ML DISP.SYRIN ONE ×2 (14:29→16:08)
[2023-01-21] MEDS ORDERED: METHOCARBAMOL (500MG) 500 MG TABLET ONE (14:29)
[2023-01-21] MEDS ORDERED: METHOCARBAMOL (750MG) 750 MG TABLET PO SCH (14:30)
[2023-01-21] MEDS ORDERED: MORPHINE SULFATE INJ 2 MG/ML DISP.SYRIN IM ONE ×2 (14:30→16:00)
[2023-01-21 15:02] LABS: BASOPHILS # (AUTO) 0.1 K/uL (0.0-0.2); BASOPHILS % (AUTO) 1.3 % (0.0-2.0); EOSINOPHILS # (AUTO) 0.2 K/uL (0.0-0.7); EOSINOPHILS % (AUTO) 2.1 % (0.0-6.0); HEMATOCRIT 40 % (39-51); HEMOGLOBIN 13.1 g/dL (13.5-17.5); LYMPHOCYTES # (AUTO) 2.9 K/uL (0.8-4.8); LYMPHOCYTES % (AUTO) 28.2 % (20.0-44.0); MEAN CORPUSCULAR HEMOGLOBIN 30 PG (26.0-33.0); MEAN CORPUSCULAR HGB CONC 33 g/dl (31.0-36.0); MEAN CORPUSCULAR VOLUME 89 fL (80-96); MONOCYTES # (AUTO) 0.6 K/uL (0.1-1.30); MONOCYTES % (AUTO) 5.4 % (2.0-12.0); NEUTROPHILS # (AUTO) 6.5 K/uL (1.8-8.9); PLATELET COUNT (AUTO) 269 K/uL (150-450); RED BLOOD CELL COUNT(AUTO) 4.43 MIL/uL (4.5-6.0); RED CELL DISTRIBUTION WIDTH 15.1 % (11.5-15.0); WHITE BLOOD COUNT (AUTO) 10.4 K/uL (4.3-11.0)
[2023-01-21 15:11] LABS: CALCIUM, SERUM 9.1 mg/dL (8.5-10.1); CREATININE 0.7 mg/dL (0.6-1.3); POTASSIUM 3.8 mmol/L (3.5-5.1)
[2023-01-21] MEDS ORDERED: METH-647 PO (16:19)
[2023-01-21 16:52] VITALS: BP 139/92; TEMP 98.5; O2SAT 98
== END 2023-01-21 16:52 | disposition home or self-care (01) ==
LOC: ER 13:19
DX: G89.29 Other chronic pain (principal); M54.50 Low back pain, unspecified; I10 Essential (primary) hypertension; E78.5 Hyperlipidemia, unspecified; Z79.899 Other long term (current) drug therapy; Z79.82 Long term (current) use of aspirin; Z60.2 Problems related to living alone
CPT/HCPCS: 99285; 72131; 96372 ×2; 85025; 80048; 36415; J2270 ×4

== ENCOUNTER 2023-06-20 09:24 | Emergency (ER) | payer OTHER ==
[~2023-06-20] VITALS: Ht 165.1 cm; Wt 102.1 kg
[~2023-06-20 09:24] MED LIST changes: +METH-647 PO
[2023-06-20 09:47] VITALS: BP 148/74; TEMP 98.2; O2SAT 93
== END 2023-06-20 10:00 | disposition home or self-care (01) ==
LOC: ER 09:30
DX: Z01.818 Encounter for other preprocedural examination (principal); G95.9 Disease of spinal cord, unspecified; I10 Essential (primary) hypertension; E78.5 Hyperlipidemia, unspecified